=== PATIENT | female | born 1985 | race Caucasian/White ===

== ENCOUNTER 2019-04-23 17:42 | Emergency (ER) | payer MEDICAID, OTHER ==
[~2019-04-23] VITALS: Ht 157.5 cm; Wt 71.7 kg
[2019-04-23 17:46] VITALS: BP 109/63
--- NOTE | 2019-04-23 17:53 | NUR ---
PT AMBULATED TO LOBBY AT THIS TIME, VSS
[2019-04-23 18:15] LABS: BASOPHILS % (AUTO) 0.4 % (0.0-2.0); EOSINOPHILS # (AUTO) 0.2 K/uL (0-0.4); EOSINOPHILS % (AUTO) 3.1 % (0.0-4.0); HEMATOCRIT 39.4 % (36-48); HEMOGLOBIN 12.9 g/dL (12.0-16.0); LYMPHOCYTES % (AUTO) 25.5 % (20.5-51.1); MEAN CORPUSCULAR HEMOGLOBIN 27 pg (27-31); MEAN CORPUSCULAR HGB CONC 33 g/dL (33-37); MONOCYTES # (AUTO) 0.6 K/uL (0.8-1.0); MONOCYTES % (AUTO) 7.2 % (1.7-9.3); NEUTROPHILS # (AUTO) 4.9 K/uL (1.8-7.7); NEUTROPHILS % (AUTO) 63.8 % (42.2-75.2); PLATELET COUNT (AUTO) 231 K/uL (140-450); RED BLOOD CELL COUNT(AUTO) 4.69 MIL/uL (4.20-5.40); RED CELL DISTRIBUTION WIDTH 13.4 % (11.6-13.7); WHITE BLOOD COUNT (AUTO) 7.7 K/uL (4.8-10.8)
[2019-04-23 18:15] LABS: APPEARANCE,URINE HAZY (CLEAR); BILIRUBIN,URINE NEGATIVE (NEGATIVE); BLOOD, URINE 3+ (NEGATIVE); COLOR,URINE YELLOW (YELLOW); LEUKOCYTE ESTERASE ,URINE 1+ (NEGATIVE); NITRITE, URINE NEGATIVE (NEGATIVE); UGLUCOSE NEGATIVE (NEGATIVE)
[2019-04-23 18:30] LABS: RBC,URINE >100 /HPF (0-5)
[2019-04-23 18:33] LABS: ANION GAP 13.5 (8-16); CARBON DIOXIDE 28.2 mmol/L (21-32); CREATININE 0.7 mg/dL (0.6-1.3); POTASSIUM 3.7 mmol/L (3.5-5.1)
[2019-04-23 18:39] LABS: ALBUMIN 3.9 g/dL (3.4-5.0); TOTAL BILIRUBIN 0.3 mg/dL (0.0-1.0)
--- NOTE | 2019-04-23 19:44 | NUR ---
PT AMBULATED TO BED 03
--- NOTE | 2019-04-23 19:48 | NUR ---
C/O EPIGASTRIC PAIN SINCE LAST NIGHT. PT REPORTS TAKING CLINDAMYCIN FOR TOOTH INFECTION LAST NIGHT, PILL GOT STUCK IN THROAT, PT MADE HERSELF THROWUP, AND NOW EPIGASTRIC PAIN THAT INCREASES W/ INSPIRATION, EATING, AND DRINKING. PAIN RADIATES UP CHEST AND TO BACK. DENIES N,V,D , FEVER OR CHILLS AT THIS TIME. PT STATES PAIN 6/10. NO MEDS TAKEN AT HOME. ER MD TO SEE THE PT. MEDHX:DENIES RX:CLINDAMYCIN
[2019-04-23] MEDS ORDERED: DICYCLOMINE HCL LIQUID 20 MG, ALUMINUM HYD/MAG/SIMETHICONE 30 ML, LIDOCAINE VISCOUS 2% ... PO ONE ×3 (20:15)
[2019-04-23 21:05] VITALS: BP 111/65
--- NOTE | 2019-04-23 21:05 | NUR ---
PT DISCHARGED WITH PAPERWORK. RX JEFFERY YOUNG. EDUCATED PT REGARDING MEDICATIONS AND S/E. EDUCATED PT REGARDING D/C DIAGNOSIS. PT VERBALIZED UNDERSTANDING OF TEACHING. TOLD PT TO FOLLOW UP WITH PCP AND WHEN TO RETURN TO ED. PT VSS. ALL QUESTIONS ANSWERED.
== END 2019-04-23 21:05 | disposition home or self-care (01) ==
LOC: MED 17:42
DX: N39.0 Urinary tract infection, site not specified (principal); R11.10 Vomiting, unspecified; Z90.49 Acquired absence of other specified parts of digestive tract; Z98.890 Other specified postprocedural states
CPT/HCPCS: 36415; 80053; 81001; 81025; 83690; 85025; 87086; 99283

== ENCOUNTER 2020-11-15 21:00 | Emergency (ER) | payer MEDICAID ==
[~2020-11-15] VITALS: Ht 157.5 cm; Wt 77.1 kg
[2020-11-15 21:23] VITALS: BP 144/83
--- NOTE | 2020-11-15 21:23 | NUR ---
to bed ambulatory
--- NOTE | 2020-11-15 21:51 | NUR ---
35 Y/O FEMALE CAME TO THE ED WITH BURNING URINARY PAIN OF 7/10X4 DAYS. PT STATES THAT WAS DIAGNOSED WITH "PROSTATE INFECTION". A&OX4. DENIES N/V/D; SKIN IS PINK/WARM/DRY; EVEN AND STEADY GAIT; LUNGS CLEAR BL; HR EVEN AND REGULAR; PT DENIES ANY FEVER, CP, SOB, OR COUGH AT THIS TIME;VSS; PATIENT POSITIONED FOR COMFORT; HOB ELEVATED; BEDRAILS UP X2; BED DOWN. ER MADE AWARE OF PT STATUS. LMP: 11/04/20 PMH: UTI SURGICAL HX: BROKEN FEMUR, 6 C-SECTIONS NKA
[2020-11-15] MEDS ORDERED: CEFTRIAXONE IM ONE (22:15)
[2020-11-15] MEDS ORDERED: LIDOCAINE MPF 1% IM ONE (22:15)
[2020-11-15] MEDS ORDERED: DOXYCYCLINE 100 MG CAP PO SCH (22:20)
[2020-11-15] MEDS ORDERED: metroNIDAZOLE 250 MG TAB PO ONE ×2 (22:20→23:15)
[2020-11-15] MEDS ORDERED: metroNIDAZOLE 500 MG TAB ONE (22:54)
[2020-11-15] MEDS ORDERED: LIDOCAINE MPF 1% 5 ML ONE (22:55)
[2020-11-15] MEDS ORDERED: cefTRIAXone 250 MG VIAL ONE (22:55)
--- NOTE | 2020-11-15 23:14 | NUR ---
4 TABLETS OF 500MG FLAGYL GIVEN PER DR PEPPER ORDER.
[2020-11-15] MEDS ORDERED: DOXY100C9 PO (23:25)
[2020-11-15] MEDS ORDERED: FLUC150T PO (23:25)
[2020-11-15] MEDS ORDERED: PYR100 PO (23:26)
[2020-11-15 23:46] VITALS: BP 144/83
--- NOTE | 2020-11-15 23:47 | NUR ---
Patient discharged with v/s stable. Written and verbal after care instructions given and explained. Patient alert, oriented and verbalized understanding of instructions. Ambulatory with steady gait. All questions addressed prior to discharge. ID band removed. Patient advised to follow up with PMD. Rx of DOXYCYCLINE HYCLATE, FLUCANAZOLE, AND PYRIDIUM given. Patient educated on indication of medication including possible reaction and side effects. Opportunity to ask questions provided and answered.
== END 2020-11-15 23:40 | disposition home or self-care (01) ==
LOC: MED 21:00
DX: R30.0 Dysuria (principal); Z20.2 Contact with and (suspected) exposure to infections with a predominantly sexual mode of transmission; Z79.899 Other long term (current) drug therapy
CPT/HCPCS: 36415; 81002; 81025; 87086; 87491; 96372; 99283; J0696; J2001

== ENCOUNTER 2021-01-08 21:34 | Emergency (ER) | payer MEDICAID ==
[~2021-01-08] VITALS: Ht 165.1 cm; Wt 79.4 kg
[~2021-01-08 21:34] MED LIST: DOXY100C9 PO; FLUC150T PO; PYR100 PO
[2021-01-08 22:00] VITALS: BP 121/77
--- NOTE | 2021-01-08 22:03 | NUR ---
PATIENT AMBUALTED TO RESTROOM WITH STEADY GAIT. TO GIVE UA SAMPLE.
--- NOTE | 2021-01-08 22:24 | NUR ---
AMBULATORY TO BED #5
--- NOTE | 2021-01-08 22:30 | NUR ---
URINARY BURNING FOR A COUPLE DAYS. LOWER ABD PAIN AND RADIATES TO THE BACK. HAS FREQUENT URINATION, FOUL SMELL VAGINA. PT REPORTS CHEATING WITH PARTNERS AND POSSIBLY FEELS LIKE SHE MAY HAVE CONTRACTED SOMETHING. PMH: UTI, STAGE 2 KIDNEY FAILURE ALLERGIES: NKA
[2021-01-08 22:44] LABS: APPEARANCE,URINE CLEAR (CLEAR); BILIRUBIN,URINE NEGATIVE (NEGATIVE); BLOOD, URINE NEGATIVE (NEGATIVE); COLOR,URINE YELLOW (YELLOW); LEUKOCYTE ESTERASE ,URINE NEGATIVE (NEGATIVE); NITRITE, URINE NEGATIVE (NEGATIVE); PH,URINE 7.5 (5.0-9.0); UGLUCOSE NEGATIVE (NEGATIVE)
--- NOTE | 2021-01-08 23:50 | NUR ---
Dr. Silver examining patient.
--- NOTE | 2021-01-09 | NUR ---
PATIENT IN LOBBY. AWAITING FOR TEST RESULTS.
[2021-01-09] MEDS ORDERED: METR500T1 PO (00:36)
--- NOTE | 2021-01-09 00:47 | NUR ---
Patient discharged with v/s stable. Written and verbal after care instructions given and explained. Patient alert, oriented and verbalized understanding of instructions. Ambulatory with steady gait. All questions addressed prior to discharge. ID band removed. Patient advised to follow up with PMD. Rx of FLAGYL given. Patient educated on indication of medication including possible reaction and side effects. Opportunity to ask questions provided and answered.
== END 2021-01-09 00:47 | disposition home or self-care (01) ==
LOC: MED 21:34
DX: N76.0 Acute vaginitis (principal); B96.89 Other specified bacterial agents as the cause of diseases classified elsewhere; Z79.899 Other long term (current) drug therapy; Z98.890 Other specified postprocedural states
CPT/HCPCS: 36415; 81003; 81025; 87086; 87210; 87491; 99283

== ENCOUNTER 2021-01-17 21:39 | Emergency (ER) | payer MEDICAID ==
[~2021-01-17] VITALS: Ht 157.5 cm; Wt 76.2 kg
[~2021-01-17 21:39] MED LIST changes: +METR500T1 PO
[2021-01-17 22:00] VITALS: BP 122/70
--- NOTE | 2021-01-17 22:03 | NUR ---
triaged and waiting in ER lobby
[2021-01-17] MEDS ORDERED: CYCLOBENZAPRINE 10 MG TAB PO ONE (22:40)
[2021-01-17] MEDS ORDERED: KETOROLAC 30 MG/ML VIAL IM ONE (22:40)
[2021-01-17] MEDS ORDERED: KETO10TA2 PO (22:43)
--- NOTE | 2021-01-17 22:44 | NUR ---
PT TAKEN TO BED 1
--- NOTE | 2021-01-17 23:00 | NUR ---
Patient sitting in bed, locked in lowest position, breathing even and unlabored. NAD noted. See Patient assessment for more information.
[2021-01-17 23:25] VITALS: BP 128/70
--- NOTE | 2021-01-17 23:25 | NUR ---
d/c with VSS. d/c education given. opportunity to ask questions given and answered. rx of ketorolac given.
== END 2021-01-17 23:25 | disposition home or self-care (01) ==
LOC: MED 21:39
DX: M54.5 Low back pain (principal); Z79.899 Other long term (current) drug therapy
CPT/HCPCS: 96372; 99283; J1885

== ENCOUNTER 2021-09-04 22:54 | Emergency (ER) | payer MEDICAID ==
[~2021-09-04] VITALS: Ht 157.5 cm; Wt 63.5 kg
[~2021-09-04 22:54] MED LIST changes: -DOXY100C9 PO; +KETO10TA2 PO; +VIB100 PO
[2021-09-04] MEDS ORDERED: guaiFENesin/CODEINE 100/10MG 5 ML UDC PO ONE (23:45)
[2021-09-04] MEDS ORDERED: IBUPROFEN 600 MG TAB PO ONE (23:45)
--- NOTE | 2021-09-04 23:53 | NUR ---
PT TAKEN TO XRAY
[2021-09-04] MEDS ORDERED: BENZ1LOZ98 PO (23:57)
[2021-09-04] MEDS ORDERED: IBUP-2213 PO (23:57)
--- NOTE | 2021-09-04 23:59 | NUR ---
Nick arauz in [facility] - 09/05/21 at 0004 by JUANJO PT RETURN FROM XRAY
[2021-09-05 00:08] VITALS: BP 129/87
[2021-09-05] MEDS ORDERED: ROBAC PO (01:26)
[2021-09-05 01:54] VITALS: BP 129/87
--- NOTE | 2021-09-05 01:54 | NUR ---
Patient discharged with v/s stable. Written and verbal after care instructions given and explained. Patient alert, oriented and verbalized understanding of instructions. Ambulatory with steady gait. All questions addressed prior to discharge. ID band removed. Patient advised to follow up with PMD. Rx of CEPACOL, IBUPROFEN, AND CODEINE PHOSPHATE given. Patient educated on indication of medication including possible reaction and side effects. Opportunity to ask questions provided and answered.
== END 2021-09-05 01:54 | disposition home or self-care (01) ==
LOC: MED 22:54
DX: U07.1 COVID-19 (principal); J06.9 Acute upper respiratory infection, unspecified; Z79.899 Other long term (current) drug therapy
CPT/HCPCS: 71045; 93005; 99283

== ENCOUNTER 2021-10-30 23:06 | Emergency (ER) | payer MEDICAID ==
[~2021-10-30] VITALS: Ht 157.5 cm; Wt 78.0 kg
[~2021-10-30 23:06] MED LIST changes: +BENZ1LOZ98 PO; +IBUP-2213 PO; +ROBAC PO
[2021-10-30 23:36] VITALS: BP 129/88
--- NOTE | 2021-10-30 23:44 | NUR ---
Dr. Garza at [facility] to exam patient.
--- NOTE | 2021-10-30 23:45 | NUR ---
C/O left eye and left facial burning sensation and itchy x 1 and half weeks. Patient reported, test new cosmetic 2 weeks before symtoms. Hx: NONE Sx: X6 , Appendectomy, Hip Sx, Breast Augmentation.
[2021-10-30] MEDS ORDERED: PRED20TA5 PO (23:50)
[2021-10-30] MEDS ORDERED: BENC TP (23:50)
[2021-10-31 00:30] VITALS: BP 129/88
--- NOTE | 2021-10-31 00:30 | NUR ---
Patient discharged with v/s stable. Written and verbal after care instructions given and explained. Patient alert, oriented and verbalized understanding of instructions. Ambulatory with steady gait. All questions addressed prior to discharge. ID band removed. Patient advised to follow up with PMD. Rx of Benadryl and Prednisone given. Patient educated on indication of medication including possible reaction and side effects. Opportunity to ask questions provided and answered.
== END 2021-10-31 00:30 | disposition home or self-care (01) ==
LOC: MED 23:06
DX: R21 Rash and other nonspecific skin eruption (principal); L29.9 Pruritus, unspecified; Z87.448 Personal history of other diseases of urinary system; Z79.899 Other long term (current) drug therapy
CPT/HCPCS: 99283

== ENCOUNTER 2021-12-07 20:09 | Emergency (ER) | payer MEDICAID ==
[~2021-12-07] VITALS: Ht 160 cm; Wt 74.8 kg
[~2021-12-07 20:09] MED LIST changes: +BENC TP; +BENZ-300 PO; -BENZ1LOZ98 PO; +PRED20TA5 PO
[2021-12-07 20:37] VITALS: BP 141/85
--- NOTE | 2021-12-07 21:01 | NUR ---
PT TAKEN TO BED 11
--- NOTE | 2021-12-07 21:17 | NUR ---
36 YO F BIB SELF WITH C/C OF UTI. PT REPORTS INCREASED FREQUENCY AND URGENCY X3WKS. PT STATES SHE OFTEN HAS UTIS AND SOMETIMES DOES NOT GET PAIN. DENIES BLOOD IN URINE. DENIES HX, RX AND ALLERGIES.
[2021-12-07 21:19] LABS: APPEARANCE,URINE CLEAR (CLEAR); BILIRUBIN,URINE NEGATIVE (NEGATIVE); BLOOD, URINE NEGATIVE (NEGATIVE); COLOR,URINE YELLOW (YELLOW); LEUKOCYTE ESTERASE ,URINE NEGATIVE (NEGATIVE); NITRITE, URINE NEGATIVE (NEGATIVE); UGLUCOSE NEGATIVE (NEGATIVE)
[2021-12-07] MEDS ORDERED: CEPH-588 PO (21:48)
[2021-12-07] MEDS ORDERED: FLUC150T PO (21:48)
[2021-12-07] MEDS ORDERED: METR-520 PO (21:48)
[2021-12-07 22:12] VITALS: BP 141/85
--- NOTE | 2021-12-07 22:12 | NUR ---
Patient discharged with v/s stable. Written and verbal after care instructions given and explained. Patient alert, oriented and verbalized understanding of instructions. Ambulatory with steady gait. All questions addressed prior to discharge. ID band removed. Patient advised to follow up with PMD. Rx of KEFLEX, DIFLUCAN AND FLAGYL given. Patient educated on indication of medication including possible reaction and side effects. Opportunity to ask questions provided and answered.
== END 2021-12-07 22:12 | disposition home or self-care (01) ==
LOC: MED 20:09
DX: N89.8 Other specified noninflammatory disorders of vagina (principal); N39.0 Urinary tract infection, site not specified; Z90.49 Acquired absence of other specified parts of digestive tract; Z98.890 Other specified postprocedural states; Z79.899 Other long term (current) drug therapy
CPT/HCPCS: 81003; 81025; 99283

== ENCOUNTER 2022-01-06 23:18 | Emergency (ER) | payer MEDICAID ==
[~2022-01-06] VITALS: Ht 162.6 cm; Wt 74.4 kg
[~2022-01-06 23:18] MED LIST changes: +CEPH-588 PO; +METR-520 PO
[2022-01-06 23:30] VITALS: BP 121/79
--- NOTE | 2022-01-06 23:34 | NUR ---
pt taken to bed 11.
--- NOTE | 2022-01-06 23:55 | NUR ---
36 Y.O. F BIB SELF C/O constipation x1wk. pt states she thinks she has a uti as well DUE TO SLIGHT BURNING AND A FOUL SMELL. reports 6/10 LOWER abd pain. PT STATED THAT SHE USED A SUPPOSITORY WITH NO RELIEF. NO N/V, SOB, OR CHEST PAIN. PT ALSO STSTED THAT SHE HAS CHANGED HER DIET RECENCTLY AND HAS INCREASED STRESS. PTS VUITALS ARE STABLE, GCS 15, AND AOX4. denies hx, rx allergy latex
--- NOTE | 2022-01-07 00:02 | NUR ---
ERMD AT BEDSIDE ASSESSING PT
[2022-01-07] MEDS ORDERED: cefTRIAXone 250 MG in LIDOCAINE MPF 1% 0.9 ML IM ONE (00:10)
[2022-01-07] MEDS ORDERED: AZITHROMYCIN 250 MG TAB PO ONE (00:10)
[2022-01-07] MEDS ORDERED: POLY17PD46 PO (00:11)
[2022-01-07] MEDS ORDERED: DOCU-299 PO (00:11)
[2022-01-07] MEDS ORDERED: cefTRIAXone 250 MG VIAL ONE ×2 (00:14→00:15)
[2022-01-07] MEDS ORDERED: LIDOCAINE MPF 1% 5 ML ONE ×2 (00:15)
[2022-01-07 01:24] VITALS: BP 121/79
--- NOTE | 2022-01-07 01:25 | NUR ---
Patient discharged with v/s stable. Written and verbal after care instructions given and explained. Patient alert, oriented and verbalized understanding of instructions. Ambulatory with steady gait. All questions addressed prior to discharge. ID band removed. Patient advised to follow up with PMD. Rx of COLACE AND MIRALAX given. Patient educated on indication of medication including possible reaction and side effects. Opportunity to ask questions provided and answered. WORK NOTE PROVIDED.
== END 2022-01-07 01:25 | disposition home or self-care (01) ==
LOC: MED 23:18
DX: K59.00 Constipation, unspecified (principal); Z79.899 Other long term (current) drug therapy; Z91.040 Latex allergy status
CPT/HCPCS: 81002; 81025; 87491; 96372; 99283; J0696; J2001